=== PATIENT | male | born 1940 | race African-American/Black ===

== ENCOUNTER 2020-04-22 10:21 | Inpatient (IN) | payer OTHER, MEDICARE ==
[~2020-04-22] VITALS: Ht 177.8 cm; Wt 88.7 kg
[2020-04-22] MEDS ORDERED: METHYLPREDNISOLONE SOD SUCC 125 MG/2 ML VIAL IV STA (10:42)
[2020-04-22] MEDS ORDERED: IPRATROPIUM BROMIDE (0.02%) 0.5MG/2.5ML NEB HHN STA (10:42)
[2020-04-22] MEDS ORDERED: ALBUTEROL (0.083%) 2.5MG/3ML NEB HHN STA (10:42)
[2020-04-22 11:24] LABS: BASOPHILS % 0.5 % (0.0-2.0); HEMATOCRIT. 46.1 % (42.0-52.0); HEMOGLOBIN. 15.1 g/dL (14.0-18.0); LYMPHOCYTES % 17.3 % (20.0-50.0); MEAN CORPUSCULAR HEMOGLOBIN 28.8 pg (28.0-32.0); MEAN CORPUSCULAR VOLUME 88.1 fL (80.0-94.0); MEAN PLATELET VOLUME 8.3 fl (7.4-10.4); MONOCYTES % 8.8 % (2.0-8.0); NEUTROPHILS % 73.4 % (40.0-76.0); PLATELET 74 x1000/uL (130-400); RED BLOOD CELL COUNT 5.23 mill/uL (4.7-6.1); RED CELL DISTRIBUTION WIDTH 14.1 % (11.6-14.6)
[2020-04-22 11:25] LABS: CHLORIDE 107 mEq/L (98-107)
[2020-04-22] MEDS ORDERED: LEVOFLOXACIN 750MG PREMIX 150 ML IV ONE (12:15)
[2020-04-22 13:23] LABS: BG BASE EXCESS -3.3 mmol/L (-2.0-2.0); BG CARBOXYHEMOGLOBIN 2.2 % (0.5-1.5); BG DEOXYHEMOGLOBIN 16.7 % (0.0-5.0); BG HCO3 ACT 21.5 mmol/L (22.0-26.0); BG METHEMOGLOBIN 0.3 % (0.0-1.5); BG OXYGEN SATURATION 82.9 % (92.0-98.5); BG OXYHEMOGLOBIN 80.8 % (94.0-97.0); BG PCO2 38.1 mmHg (35.0-45.0); BG PO2 49.8 mmHg (75.0-100.0); BG SAMPLE SITE RIGHT RADIAL; BG TOTAL HEMOGLOBIN 14.8 g/dL (12.0-18.0); BG VENT MODE NASAL CANNULA
[2020-04-22] MEDS ORDERED: ONDANSETRON HCL 4MG/2ML INJ IV PRN (18:00)
[2020-04-22] MEDS ORDERED: ALBUTEROL 6.7GM HFA INHALER ORI PRN (18:00)
[2020-04-22] MEDS ORDERED: ACETAMINOPHEN 325MG TABLET PO PRN (18:00)
[2020-04-22] MEDS ORDERED: AZITHROMYCIN 500 MG TABLET PO NR (18:00)
[2020-04-22] MEDS ORDERED: BENZONATATE 100MG CAPSULE PO PRN (18:00)
[2020-04-22] MEDS ORDERED: CEFTRIAXONE 1 G PREMIX 50 ML IV SCH (18:10)
[2020-04-23] MEDS ORDERED: DEXAMETHASONE 4MG TABLET PO SCH (09:00)
[2020-04-23] MEDS: AZITHROMYCIN 250 MG TABLET PO SCH (09:16)
[2020-04-23] MEDS: LEVETIRACETAM 500MG TABLET PO SCH (11:21)
[2020-04-23 12:55] LABS: HEMATOCRIT. 43.4 % (42.0-52.0); HEMOGLOBIN. 14.5 g/dL (14.0-18.0); MEAN CORPUSCULAR VOLUME 87.2 fL (80.0-94.0); MEAN PLATELET VOLUME 8.3 fl (7.4-10.4); PLATELET 90 x1000/uL (130-400); RED BLOOD CELL COUNT 4.98 mill/uL (4.7-6.1); RED CELL DISTRIBUTION WIDTH 14.3 % (11.6-14.6)
[2020-04-23 14:25] LABS: PLATELET ESTIMATE DECREASED
[2020-04-23] MEDS ORDERED: CEFTRIAXONE 1 G PREMIX 50 ML IV SCH (18:00)
[2020-04-23] MEDS ORDERED: CEFTRIAXONE 1,000 MG in DEXTROSE 5% WATER 50 ML IV SCH (18:00)
[2020-04-23 21:57] LABS: *AMPHETAMINES SCREEN URINE NEGATIVE (NEGATIVE); *BARBITURATES SCREEN URINE NEGATIVE (NEGATIVE); *BENZODIAZEPINES SCREEN URINE PRESUMTIVE POSITIVE (NEGATIVE); *COCAINE SCREEN URINE NEGATIVE (NEGATIVE); METHADONE URINE SCREEN NEGATIVE (NEGATIVE); OPIATES URINE SCREEN NEGATIVE (NEGATIVE)
[2020-04-23 21:59] LABS: CANNABINOID URINE SCREEN NEGATIVE (NEGATIVE); PHENCYCLIDINE URINE SCREEN NEGATIVE (NEGATIVE)
[2020-04-24] MEDS: LEVETIRACETAM 500MG TABLET PO SCH ×3 (03:46→22:40)
[2020-04-24] MEDS: METHYLPREDNISOLONE SOD SUCC 40 MG/ML VIAL IV SCH ×3 (03:46→14:00)
[2020-04-24] MEDS: AZITHROMYCIN 250 MG TABLET PO SCH (09:00)
[2020-04-24 14:03] LABS: BG BASE EXCESS 0.3 mmol/L (-2.0-2.0); BG CARBOXYHEMOGLOBIN 0.4 % (0.5-1.5); BG DEOXYHEMOGLOBIN 14.2 % (0.0-5.0); BG FRACTION INSPIRED OXYGEN 100; BG HCO3 ACT 25.9 mmol/L (22.0-26.0); BG METHEMOGLOBIN 0.1 % (0.0-1.5); BG OXYGEN SATURATION 85.7 % (92.0-98.5); BG OXYHEMOGLOBIN 85.3 % (94.0-97.0); BG PCO2 45.7 mmHg (35.0-45.0); BG PH 7.372 (7.350-7.450); BG PO2 53.7 mmHg (75.0-100.0); BG SAMPLE SITE LEFT BRACHIAL; BG TOTAL HEMOGLOBIN 14.4 g/dL (12.0-18.0); BG VENT MODE MASK - NRB
[2020-04-24] MEDS ORDERED: NON FORMULARY PATIENT HOME MED XX SCH (17:45)
[2020-04-24] MEDS ORDERED: DEXAMETHASONE 4MG TABLET PO SCH (17:45)
[2020-04-24 20:13] LABS: HEMATOCRIT. 42.8 % (42.0-52.0); HEMOGLOBIN. 14.1 g/dL (14.0-18.0); MEAN CORPUSCULAR HEMOGLOBIN 28.6 pg (28.0-32.0); MEAN PLATELET VOLUME 8.6 fl (7.4-10.4); PLATELET 101 x1000/uL (130-400); RED BLOOD CELL COUNT 4.92 mill/uL (4.7-6.1); RED CELL DISTRIBUTION WIDTH 13.9 % (11.6-14.6)
[2020-04-24 20:26] LABS: CHLORIDE 105 mEq/L (98-107)
[2020-04-24 21:19] LABS: PLATELET ESTIMATE DECREASED
[2020-04-24] MEDS: ALBUTEROL 6.7GM HFA INHALER ORI SCH (23:45)
[2020-04-25] VITALS: BP 110/70
[2020-04-25 08:00] VITALS: BP 124/70
[2020-04-25] MEDS: LEVETIRACETAM 500MG TABLET PO SCH ×2 (08:14→21:00)
[2020-04-25] MEDS: DEXAMETHASONE 6MG TABLET PO SCH (08:14)
[2020-04-25] MEDS: INSULIN LISPRO 100 UNITS/ML SUBCUT SCH ×3 (08:22→17:28)
[2020-04-25] MEDS ORDERED: BUDESONIDE 0.5MG/2ML NEB HHN SCH (09:00)
[2020-04-25 12:00] VITALS: BP 135/82
[2020-04-25 16:00] VITALS: BP 135/79
[2020-04-25 20:00] VITALS: BP 127/85
[2020-04-25] MEDS: ENOXAPARIN 40MG/0.4ML SYR SUBCUT SCH (21:49)
[2020-04-26] VITALS: BP 108/55
[2020-04-26 04:00] VITALS: BP 124/92
[2020-04-26] MEDS: LEVETIRACETAM 500MG TABLET PO SCH ×2 (09:10→20:50)
[2020-04-26] MEDS: DEXAMETHASONE 6MG TABLET PO SCH (09:10)
[2020-04-26] MEDS: INSULIN LISPRO 100 UNITS/ML SUBCUT SCH ×4 (09:12→21:10)
[2020-04-26 12:00] VITALS: BP 126/83
[2020-04-26] MEDS ORDERED: DEXTROSE 50% WATER 50ML SYRINGE IV PRN (16:45)
[2020-04-26] MEDS: BLOOD SUGAR DIAGNOSTIC STRIP TEST SCH ×2 (17:40→21:01)
[2020-04-26 20:00] VITALS: BP 157/94
[2020-04-26] MEDS: ENOXAPARIN 40MG/0.4ML SYR SUBCUT SCH (20:50)
[2020-04-26] MEDS: ALBUTEROL 6.7GM HFA INHALER ORI SCH (22:46)
[2020-04-27] VITALS: BP 132/90
[2020-04-27 04:00] VITALS: BP 145/81
[2020-04-27] MEDS: ALBUTEROL 6.7GM HFA INHALER ORI SCH ×4 (05:35→23:49)
[2020-04-27] MEDS: BLOOD SUGAR DIAGNOSTIC STRIP TEST SCH ×4 (06:01→21:50)
[2020-04-27 08:00] VITALS: BP 123/90
[2020-04-27] MEDS: INSULIN LISPRO 100 UNITS/ML SUBCUT SCH ×4 (08:10→21:50)
[2020-04-27] MEDS: DEXAMETHASONE 6MG TABLET PO SCH (08:57)
[2020-04-27] MEDS: LEVETIRACETAM 500MG TABLET PO SCH ×2 (08:57→21:50)
[2020-04-27 12:00] VITALS: BP 126/88
[2020-04-27 16:00] VITALS: BP 149/86
[2020-04-27 20:00] VITALS: BP 139/93
[2020-04-27] MEDS: ENOXAPARIN 40MG/0.4ML SYR SUBCUT SCH (21:50)
[2020-04-28] VITALS: BP 118/79
[2020-04-28 04:00] VITALS: BP 151/86
[2020-04-28] MEDS: ALBUTEROL 6.7GM HFA INHALER ORI SCH ×3 (06:40→17:28)
[2020-04-28 07:28] LABS: HEMATOCRIT. 44.7 % (42.0-52.0); HEMOGLOBIN. 14.9 g/dL (14.0-18.0); MEAN CORPUSCULAR HEMOGLOBIN 29.3 pg (28.0-32.0); MEAN CORPUSCULAR VOLUME 87.7 fL (80.0-94.0); MEAN PLATELET VOLUME 8.3 fl (7.4-10.4); PLATELET 100 x1000/uL (130-400); RED CELL DISTRIBUTION WIDTH 13.9 % (11.6-14.6)
[2020-04-28] MEDS: BLOOD SUGAR DIAGNOSTIC STRIP TEST SCH ×5 (07:42→21:31)
[2020-04-28 07:44] LABS: CHLORIDE 108 mEq/L (98-107)
[2020-04-28 08:00] VITALS: BP 130/82
[2020-04-28] MEDS: INSULIN LISPRO 100 UNITS/ML SUBCUT SCH ×4 (08:10→21:51)
[2020-04-28] MEDS: DEXAMETHASONE 6MG TABLET PO SCH (09:42)
[2020-04-28] MEDS: LEVETIRACETAM 500MG TABLET PO SCH ×2 (09:42→21:50)
[2020-04-28 12:00] VITALS: BP 110/86
[2020-04-28 16:00] VITALS: BP 165/105
[2020-04-28 19:03] LABS: PLATELET ESTIMATE DECREASED
[2020-04-28 20:00] VITALS: BP 129/85
[2020-04-28] MEDS: ENOXAPARIN 40MG/0.4ML SYR SUBCUT SCH (21:51)
[2020-04-29] VITALS: BP 130/90
[2020-04-29 08:00] VITALS: BP 143/73
[2020-04-29] MEDS: INSULIN LISPRO 100 UNITS/ML SUBCUT SCH ×3 (08:10→19:02)
[2020-04-29] MEDS: LEVETIRACETAM 500MG TABLET PO SCH (08:53)
[2020-04-29] MEDS: DEXAMETHASONE 6MG TABLET PO SCH (08:53)
[2020-04-29 12:00] VITALS: BP 132/82
[2020-04-29] MEDS: BLOOD SUGAR DIAGNOSTIC STRIP TEST SCH ×2 (12:40→17:40)
[2020-04-29 16:00] VITALS: BP 120/77
[2020-04-29] MEDS ORDERED: CALCIUM CHLORIDE 1GM/10ML SYR IV ONE (19:00)
[2020-04-29] MEDS ORDERED: EPINEPHRINE 0.1MG/ML (1:10,000) 10ML SYR ONE (19:00)
[2020-04-29] MEDS ORDERED: SODIUM BICARBONATE 8.4% 1 MEQ/ML 50ML SYR IV ONE (19:00)
== END 2020-04-29 23:30 | disposition expired | DRG 871 ==
LOC: ER 10:38 → MICUSO 14:19 → 7WST 04-24 22:52
PROVIDERS: ADMIT Internal Medicine; ATTEND Internal Medicine
PROC: 5A09357 Assistance with Respiratory Ventilation, Less than 24 Consecutive Hours, Continuous Positive Airway Pressure (ICD-10-PCS; 2020-04-22)
PROC: 5A09357 Assistance with Respiratory Ventilation, Less than 24 Consecutive Hours, Continuous Positive Airway Pressure (ICD-10-PCS; principal; 2020-04-29)
PROC: 5A12012 Performance of Cardiac Output, Single, Manual (ICD-10-PCS; 2020-04-29)
PROC: 0BH17EZ Insertion of Endotracheal Airway into Trachea, Via Natural or Artificial Opening (ICD-10-PCS; 2020-04-29)
DX: A41.89 Other specified sepsis (principal); U07.1 COVID-19; J96.01 Acute respiratory failure with hypoxia; J12.82 Pneumonia due to coronavirus disease 2019; N17.0 Acute kidney failure with tubular necrosis; J44.0 Chronic obstructive pulmonary disease with (acute) lower respiratory infection; J44.1 Chronic obstructive pulmonary disease with (acute) exacerbation; E44.0 Moderate protein-calorie malnutrition; I12.9 Hypertensive chronic kidney disease with stage 1 through stage 4 chronic kidney disease, or unspecified chronic kidney disease; N18.9 Chronic kidney disease, unspecified; E11.22 Type 2 diabetes mellitus with diabetic chronic kidney disease; J20.8 Acute bronchitis due to other specified organisms; R65.20 Severe sepsis without septic shock; Z68.28 Body mass index [BMI] 28.0-28.9, adult
CPT/HCPCS: 36415; 36600; 71045; 80048; 80053; 80305; 82375; 82728; 82805; 82962; 83036; 83605; 83615; 83880; 84145; 84484; 85025; 85379; 86140; 87635; 93005; 94660; 96365; 96375; 99291; J0696; J1650; J1815; J1956; J2920; J2930; J3490; J7060; J7626; J8540